=== PATIENT | male | born 1955 | race Asian ===

== ENCOUNTER 2020-05-14 19:20 | Emergency (ER) | payer BC ==
[~2020-05-14] VITALS: Ht 172.7 cm; Wt 83.9 kg
[2020-05-14 19:40] VITALS: Ht 172.7 cm; Wt 83.9 kg
[2020-05-14 23:45] VITALS: BP 172/103
== END 2020-05-15 00:26 | disposition home or self-care (01) ==
LOC: ED 19:20
DX: S39.012A Strain of muscle, fascia and tendon of lower back, initial encounter (principal); S70.01XA Contusion of right hip, initial encounter; I10 Essential (primary) hypertension; W11.XXXA Fall on and from ladder, initial encounter; Y93.89 Activity, other specified; Y92.89 Other specified places as the place of occurrence of the external cause; Y99.8 Other external cause status
CPT/HCPCS: J1885; Q0092